=== PATIENT | female | born 1975 ===

== ENCOUNTER 2024-07-27 05:43 | Day surgery (SDC) | payer OTHER ==
[~2024-07-27 05:43] MED LIST: COZAAR100 MG PO
[2024-07-27] MEDS ORDERED: EPINEPHRINE HCL/PF 1 MG/ML AMPUL IR ONE (11:15)
[2024-07-27] MEDS ORDERED: CLINDAMYCIN PHOSPHATE 150 MG/ML (900mg) IV ONE (11:15)
[2024-07-27] MEDS ORDERED: TRANEXAMIC ACID 100MG/1ML (1000MG) AMPUL IV ONE (11:15)
[2024-07-27] MEDS ORDERED: ENOXAPARIN SODIUM 40 MG/0.4 ML SYRINGE SUBCUTANEO ONE (11:15)
[2024-07-27] MEDS ORDERED: LIDOCAINE HCL 1%/EPINEPHRINE 20ML VIAL IJ ONE (11:15)
[2024-07-27] MEDS ORDERED: SUGAMMADEX SODIUM 200 MG/2 ML VIAL IV ONE (18:30)
== END 2024-07-27 20:05 | disposition home or self-care (01) ==
LOC: CIR.AMB 05:43
PROVIDERS: ATTEND Specialist
DX: N62 Hypertrophy of breast (principal); E65 Localized adiposity; Z88.6 Allergy status to analgesic agent; Z91.013 Allergy to seafood; I10 Essential (primary) hypertension